=== PATIENT | male | born 1985 | race African-American/Black ===

== ENCOUNTER 2017-12-15 23:39 | Emergency (ER) | payer SELFPAY ==
[~2017-12-15] VITALS: Ht 175.3 cm; Wt 108.4 kg
[2017-12-16] MEDS ORDERED: IBUPROFEN 600MG TABLET PO ONE (03:30)
[2017-12-16] MEDS ORDERED: TETANUS, DIPHTHERIA, PERTUSSIS VAC/PF 0.5ML (>7YR OLD) IM ONE (03:30)
[2017-12-16] MEDS ORDERED: FLUORESCEIN SODIUM 1MG/STRIP OP ONE (03:30)
[2017-12-16] MEDS ORDERED: TETRACAINE 0.5% OPHTH DROPS 4ML OP ONE (03:30)
[2017-12-16 05:00] VITALS: BP 116/68
== END 2017-12-16 05:40 | disposition home or self-care (01) ==
LOC: ER 23:39
DX: S90.822A Blister (nonthermal), left foot, initial encounter (principal); S90.821A Blister (nonthermal), right foot, initial encounter; H10.9 Unspecified conjunctivitis; L03.213 Periorbital cellulitis; B35.3 Tinea pedis; L03.116 Cellulitis of left lower limb; L03.115 Cellulitis of right lower limb; X58.XXXA Exposure to other specified factors, initial encounter; Y93.89 Activity, other specified; Y92.89 Other specified places as the place of occurrence of the external cause; Y99.8 Other external cause status
CPT/HCPCS: 90471; 90715; 99283